=== PATIENT | male | born 1995 ===

== ENCOUNTER 2016-11-28 19:55 | Emergency (ER) | payer OTHER ==
[2016-11-28 20:48] VITALS: BP 160/85
--- NOTE | 2016-11-28 22:03 | UC ---
UC General HPI - HPI Summary HPI Summary: 20 male presents with complaints of diarrhea since Sunday11/26/16 and new symptoms of his head feeling foggy which started last night 11/27/16. Patient states he was out the night there was a case of meningitis found however was not at the same libertarian. He attends [employer] and has been worried about meningitis. States he has been drinking fluids however feels as though he may need to drink more.Has not taken any medications. Denies head pain/ headache, neck stiffness, difficulty breathing, body aches, chest pain and did not know he had a fever until now. His temp was taken twice first time to be 100.1F and second to be 99.7F. Denies abdominal pain, vomiting, nausea, blurred vision, fatigue, cough and sore throat. Denies any recent eating out. Did not have the flu shot this year. He states he doesn't know if it is just over-thinking things because of the recent meningitis case. Admits to nausea but denies current nausea. Last dose Advil prior to arrival. - History of Current Complaint Chief Complaint: UCGeneralIllness Stated Complaint: HEAD FOGGY STOMACH UPSET CS UNK Time Seen by Provider: 11/28/16 21:45 Hx Obtained From: Patient Onset/Duration: Sudden Onset, Lasting Days Timing: Constant Onset Severity: Mild Current Severity: Mild Associated Signs & Symptoms: Positive: Diarrhea, Decreased Oral Intake - resolved today, Fever, Headache - "foggy", Nausea - Allergy/Home Medications Allergies/Adverse Reactions: Allergies Allergy/AdvReac Type Severity Reaction Status Date / Time No Known Allergies Allergy Verified 11/28/16 20:48 Home Medications: Home Medications NK [No Home Medications Reported] 11/28/16 [History Confirmed 11/28/16] PMH/Surg Hx/FS Hx/Imm Hx Cardiovascular History Of: Denies: Hypertension Respiratory History Of: Denies: Asthma - Surgical History Surgical History: None - Family History Known Family History: Positive: None - Social History Alcohol Use: Weekly Substance Use Type: Marijuana Substance Use Comment - Amount & Last Used: Occasional, once every 2 months Smoking Status (MU): Never Smoked Tobacco Review of Systems Constitutional: Fever, Fatigue Skin: Negative Eyes: Negative ENT: Negative Respiratory: Negative Cardiovascular: Negative Gastrointestinal: Diarrhea, Other - nausea Genitourinary: Negative Motor: Negative Neurovascular: Negative Musculoskeletal: Negative Neurological: Headache All Other Systems Reviewed And Are Negative: Yes Physical Exam Triage Information Reviewed: Yes Appearance: Well-Appearing, No Pain Distress, Well-Nourished Vital Signs: Initial Vital Signs Temp 100.1 F 11/28/16 20:40 Pulse 86 11/28/16 20:40 Resp 16 11/28/16 20:40 BP 160/85 11/28/16 20:40 Pulse Ox 100 11/28/16 20:40 Vital Signs Reviewed: Yes Eyes: Positive: Conjunctiva Clear ENT: Positive: Normal ENT inspection, Hearing grossly normal, Pharynx normal, TMs normal Dental: Negative: Percussion Tenderness @, Cervical Lymphadenopathy Neck: Positive: Supple, Nontender, No Lymphadenopathy. Negative: Nuchal Rigidity - brudinski and kernig signs (-) Respiratory: Positive: Chest non-tender, Lungs clear, Normal breath sounds, No respiratory distress Cardiovascular: Positive: RRR, No Murmur, Pulses Normal Abdomen Description: Positive: Nontender, No Organomegaly, Soft. Negative: Bruit, CVA Tenderness (R), CVA Tenderness (L), Guarding, Hepatomegaly, McBurney' s Point Tenderness, Splenomegaly Bowel Sounds: Positive: Present Musculoskeletal Exam: Normal Musculoskeletal: Positive: Strength Intact, ROM Intact Neurological Exam: Normal - neurologic exam, memory intact. gait observed and normal Neurological: Positive: Alert Psychological Exam: Normal Skin Exam: Normal Course/Dx - Course Course Of Treatment: urinalysis obtained and negative to rule out UTI. educated about how this may be influenxa however due to length of symptoms there is no treatment. decided against culture swab since treatment would not change. patient adivsed to take ibuprofen/tylenol for fever and discomfort also instructed to drink plenty of fluids to prevent dehydration from diarrhea. BRAT diet, OTC diarrhea medication if persists. aware of worsening symptoms and to go straight to ED for further work up in the next 3-4 days. no current nausea, no need for zofran at this time. - Differential Dx - Multi-Symptom Differential Diagnoses: Urinary Tract Infection, Other - influenza, meningitis Provider Diagnoses: viral syndrome, diarrhea - Physician Notifications Discussed Patient Care With: Dr Cottrell Discharge - Discharge Plan Condition: Stable Disposition: HOME Patient Education Materials: Dehydration (ED), Viral Syndrome (ED), Influenza ( GEN) Referrals: Non Staff,Doctor [Primary Care Provider] - Additional Instructions: Try taking Ibuprofen for pain and low grade fever. See if it gives you any relief. Rest and drink plenty of clear fluids. Try eating Bananas, toast, applesauce and rice to help with diarrhea. Stay well hydrated. You may also try OTC medication to help with diarrhea if it persists. If symptoms worsen such as high fever, neck pain or stiffness, increasing head pain/foggy, loss of memory or concentration or new symptoms develop please seek medical attention immediately. If no improvement within the next 24-48 hours recommend going to ER for further evaluation.
== END 2016-11-28 22:09 | disposition home or self-care (01) ==
LOC: UCCORT 19:55
DX: B34.9 Viral infection, unspecified (principal); R19.7 Diarrhea, unspecified
CPT/HCPCS: 99201; G0463

== ENCOUNTER 2017-11-05 19:15 | Emergency (ER) | payer OTHER ==
[2017-11-05 20:39] VITALS: BP 143/93
--- NOTE | 2017-11-05 20:58 | UC ---
Throat Pain/Nasal René HPI - HPI Summary HPI Summary: Pt c/o sudden onset of sore throat, chills and generalized malaise. X 3 days. Pt is a student at [employer]. Has known exposure to strep throat. "Does not get flu vaccine" - History of Current Complaint Chief Complaint: UCGeneralIllness Stated Complaint: SORE THROAT Time Seen by Provider: 11/05/17 20:37 Hx Obtained From: Patient Onset/Duration: Sudden Onset, Lasting Days, Still Present Severity: Mild Pain Intensity: 7 Associated Signs & Symptoms: Positive: Dysphagia - Epiglottits Risk Factors Epiglottis Risk Factors: Negative - Allergies/Home Medications Allergies/Adverse Reactions: Allergies Allergy/AdvReac Type Severity Reaction Status Date / Time No Known Allergies Allergy Verified 11/05/17 20:38 PMH/Surg Hx/FS Hx/Imm Hx Previously Healthy: Yes - Surgical History Surgical History: None - Family History Known Family History: Positive: Cardiac Disease - Social History Occupation: Student Lives: Dormitory/Roommates Alcohol Use: Weekly Substance Use Type: Marijuana Substance Use Comment - Amount & Last Used: Occasional, once every 2 months Smoking Status (MU): Never Smoked Tobacco Have You Smoked in the Last Year: Yes - marijuana - Immunization History Vaccination Up to Date: No Review of Systems Constitutional: Chills, Fatigue Skin: Negative Eyes: Negative ENT: Sore Throat Respiratory: Cough Cardiovascular: Negative Gastrointestinal: Negative Genitourinary: Negative Motor: Negative Neurovascular: Negative Musculoskeletal: Myalgia Neurological: Negative Psychological: Negative Is Patient Immunocompromised?: No All Other Systems Reviewed And Are Negative: Yes Physical Exam Triage Information Reviewed: Yes Appearance: Well-Appearing Vital Signs: Initial Vital Signs Temp 98.9 F 11/05/17 20:34 Pulse 80 11/05/17 20:34 Resp 16 11/05/17 20:34 BP 143/93 11/05/17 20:34 Pulse Ox 100 11/05/17 20:34 Eye Exam: Normal ENT Exam: Other ENT: Positive: Pharyngeal erythema, Tonsillar swelling Dental Exam: Normal Neck exam: Normal Respiratory Exam: Normal Cardiovascular Exam: Normal Musculoskeletal Exam: Normal Neurological Exam: Normal Psychological Exam: Normal Skin Exam: Normal Throat Pain/Nasal Course/Dx - Course Course Of Treatment: I discussed the rapid strep result of negative and discussed the possibility of mono. Pt stated that he "may have had mono 3 years ago." - Differential Dx/Diagnosis Differential Diagnosis/HQI/PQRI: Influenza, Mononucleosis, Pharyngitis, Tonsillitis, URI Provider Diagnoses: tonsillitis Discharge - Discharge Plan Condition: Stable Disposition: HOME Prescriptions: Penicillin V Potassium 500 mg PO Q12H #20 tablet Patient Education Materials: Tonsillitis (ED), Ibuprofen (By mouth) Referrals: [facility] [Outside] - If Needed Non Staff,Doctor [Primary Care Provider] -
== END 2017-11-05 21:07 | disposition home or self-care (01) ==
LOC: UCCORT 19:15
DX: J03.90 Acute tonsillitis, unspecified (principal); Z20.89 Contact with and (suspected) exposure to other communicable diseases; F12.90 Cannabis use, unspecified, uncomplicated
CPT/HCPCS: 87651; 99212; G0463